=== PATIENT | male | born 1990 | race Caucasian/White ===

== ENCOUNTER 2016-11-24 17:55 | Emergency (ER) | payer SELFPAY ==
--- NOTE | ~2016-11-24 | CT4 ---
[facility]. [facility] A Service of [facility] RADIOLOGY TEXT RESULTS PATIENT: KINA SOSA LOCATION: SED : [birth year] UNIT #: [id number] AGE: [address]: JANAE CANCINO SEX: M ORDER DR: [id number] [place] [id number] MR#: [id number] Acc #: [id number] NAME: KINA SOSA : 1990 SEX: M STUDY DATE/TIME: 11/24/2016 18:25 UNIT: SED ROOM: STUDY DESCRIPTION: CT Abd and Pelv Wo Cont Attending Physician: Janae Cancino Aprn Ordering Physician: Janae Cancino Aprn Primary Care Physician: No Primary Care Physician MEDICAL IMAGING REPORT This report is preliminary unless electronic signature is present. EXAM CT abdomen and pelvis. INDICATIONS Right flank pain for [address] of the abdomen and pelvis without contrast. Coronal and sagittal reconstructions were obtained. This CT exam was performed with one or more of the following radiation dose reduction techniques: Automatic exposure control, adjustment of mA and/or kV according to patient size, and iterative reconstruction. COMPARISON CT abdomen and pelvis, 06/07/2015. FINDINGS Abdomen: There are 4 or 5 small 2 mm calculi in the superior pole right kidney. Patient has a moderate right hydronephrosis secondary to a 4 mm calculus in the mid-right ureter just below the pelvic inlet. No left renal calculi. Noncontrast evaluation of remaining solid abdominal organs are within normal limits. The gallbladder is not distended. The bowel is not dilated. The appendix is normal. The abdominal aorta is normal in caliber. Pelvis: No pelvic mass or free pelvic fluid. Bladder is unremarkable. No enlarged pelvic or inguinal lymph nodes. No acute osseous abnormalities. [facility] A Service [facility] RADIOLOGY TEXT RESULTS PATIENT: KINA SOSA LOCATION: SED : 92 UNIT #: [id number] AGE: [address]: CANCINO,JANAE G SEX: M ORDER DR: IMPRESSION 1. 4 mm calculus in the mid-right ureter just below the pelvic inlet resulting in a moderate right hydronephrosis. 2. Right nephrolithiasis. Dictated by... Rasta Camara M.D. THIS IS AN ELECTRONICALLY VERIFIED REPORT Rasta Camara M.D. at 11/26/2016 9:49 AM MILAD/jean-paul TD: 11/25/2016 09:54 JOB #: [id number] MEDICAL IMAGING REPORT Page 1 of 1
[~2016-11-24 17:55] MED LIST: ALBUTEROL17 GM INH; ALLEGRA60 MG PO; AMOXICILLIN875 MG PO; BACTRIM DS TABL1 TA1 PO; BACTRIM DS TABL1 TA2 PO; CLARITIN D PO; CLARITIN10 MG PO; FLEXERIL PO; FLEXERIL10 M1 PO; FLEXERIL10 MG PO; FLOMAX0.4 M1 PO; IBUPROFEN PO; LOMOTIL TABLET1 TAB PO; MAGIC MOUTH WASH PO; MEDROL4 MG/DOSE- PO; NAPROSYN500 MG PO; NO MEDICATIONS; PERCOCET7.5 PO; PERMETHRIN60 GM TP; PHENERGAN25 M1 PO; PREDNISONE PO; PREDNISONE50 MG PO; RISPERDAL0.25 MG PO; RISPERDAL0.5 M1 PO; RISPERDAL0.5 MG PO; RISPERIDONE PO; RONDEC DM PO; ULTRAM PO; VOLTAREN75 MG PO; ZITHROMAX PO; ZOFRAN ODT4 MG PO; ZOFRAN PO
[2016-11-24 18:39] LABS: BASOPHIL% 0.3 % (0-2.5); EOSINOPHIL# 0.1 X10e3 (0-0.7); EOSINOPHIL% 0.7 % (0.0-7.0); HEMATOCRIT 41.1 % (38.0-50.0); HEMOGLOBIN 14.6 gm/dL (13.0-16.0); LYMPHOCYTE# 1.8 X10e3 (1.0-3.5); LYMPHOCYTE% 18.1 % (17.0-45.0); MEAN CELL VOLUME 86.9 FL (83-96); MEAN CORPUSCULAR HEMOGLOBIN 30.9 PG (28-34); MEAN CORPUSCULAR HGB CONC 35.6 g/dL (30-36); MEAN PLATELET VOLUME 6.8 FL (6.5-11.5); MONOCYTE# 0.9 X10e3 (0-1.0); MONOCYTE% 8.6 % (3.0-12.0); NEUTROPHIL# 7.2 X10e3 (1.5-7.1); NEUTROPHIL% 72.3 % (40-75); PLATELET COUNT 200 X10e3 (140-420); RED BLOOD COUNT 4.73 X10e (3.90-5.60); RED CELL DISTRIBUTION WIDTH 12.9 % (11.0-15.5); WHITE BLOOD COUNT 9.9 X10e3 (4.0-10.5)
[2016-11-24 18:43] LABS: DIFF IND NO
[2016-11-24 18:51] LABS: URINE SOURCE CLEAN CATCH
[2016-11-24 18:54] LABS: URINE APPEARANCE CLEAR; URINE BILIRUBIN NEG (NEG); URINE BLOOD 2+ (NEG); URINE COLOR YELLOW; URINE GLUCOSE NEG (NORM); URINE KETONE NEG (NEG); URINE LEUKOCYTE ESTERASE NEG (NEG); URINE NITRATE NEG (NEG); URINE PROTEIN NEG (NEG); URINE SPECIFIC GRAVITY 1.025 (1.003-1.035); URINE UROBILINOGEN 0.2 MG/DL (NORM)
[2016-11-24 18:55] LABS: MICRO INDICATED? YES
[2016-11-24 18:59] LABS: CULTURE INDICATED? NO; URINE BACTERIA NEG (NEG); URINE CRYSTALS CALCIUM OXALATE /[HPF]; URINE SQUAMOUS EPITHELIAL CELL FEW /[HPF]; URINE WBC NEG /[HPF] (0-5)
[2016-11-24 19:00] LABS: ALBUMIN SERUM 4.7 g/dL (3.5-5.0); BILIRUBIN, DIRECT 0.1 mg/dL (0.0-0.2); BILIRUBIN,INDIRECT 0.5 mg/dL (0.0-0.9); BILIRUBIN,TOTAL 0.6 mg/dL (0.2-2.0); BUN/CREATININE RATIO 9.33; CALCIUM SERUM 9.8 mg/dL (8.4-10.2); CREATININE SERUM 1.5 mg/dL (0.6-1.4); GLOM FILT RATE Estimated 64.3 mL/min (>60); POTASSIUM 3.2 mmol/L (3.5-5.1); PROTEIN TOTAL SERUM 7.5 g/dL (6.0-8.3)
[2016-11-24 19:04] LABS: AMPHETAMINE POS (NEG); BARBITURATES NEG (NEG); BENZODIAZEPINES NEG (NEG); COCAINE NEG (NEG); MARIJUANA NEG (NEG); OPIATES NEG (NEG); TRICYCLIC ANTIDEPRESSANTS NEG (NEG); U METHADONE NEG (NEG)
== END 2016-11-24 20:00 | disposition home or self-care (01) ==
LOC: SED 17:55
PROVIDERS: Nurse Practitioner Family
DX: N13.2 Hydronephrosis with renal and ureteral calculous obstruction (principal); F17.200 Nicotine dependence, unspecified, uncomplicated; J45.909 Unspecified asthma, uncomplicated; Z86.19 Personal history of other infectious and parasitic diseases
CPT/HCPCS: 36415; 74176; 80048; 80076; 80307; 81003; 83690; 85025; 96361; 96374; 96375; 99284; J1885; J2270; J2405